=== PATIENT | male | born 1955 | race Caucasian/White ===

== ENCOUNTER → 2016-08-27 | Outpatient (CLI) | payer OTHER ==
[~2016-08-27] MED LIST: GADODIAMIDE PF 287 MG/ML 20 ML VIAL (for RAD MRI) IV ONE
--- NOTE | 2016-08-27 15:32 | RADRPT ---
EXAM DATE/TIME: 08/27/2016 13:59 [place] COMPARISON: No previous studies available for comparison. INDICATIONS : Malignant neoplasm. CONTRAST: 20 cc Omniscan (gadodiamide) IV MEDICAL HISTORY : Hypertension. Glioblastoma. SURGICAL HISTORY : Craniotomy. ENCOUNTER: Subsequent ACUITY: 4-6 months PAIN SCORE: 0/10 LOCATION: head TECHNIQUE: Whole brain MR perfusion was performed. Parametric maps generated included time to peak, mean transi t time, cerebral blood volume and cerebral blood flow. FINDINGS: There is a multilobular enhancing mass in the right posterior parietal lobe which measures almost 5.2 x 3.7 cm in size characteristic of underlying malignancy with encephalomalacia adjacent to it and so me degree of edema vasogenic in nature surrounding it without any mass effect or hemorrhage. There is reduction in blood flow and blood volume at this site. CONCLUSION: Multilobular enhancing mass adjacent to postoperative changes and encephalomalacia on the right side characteristic of underlying malignancy. Julio Cesar Mccann MD on August 27, 2016 at 15:13 Board Certified Radiologist. This report was verified electronically.
== END ==
LOC: HRAD 12:57
DX: C71.8 Malignant neoplasm of overlapping sites of brain (principal); E83.40 Disorders of magnesium metabolism, unspecified; Z79.899 Other long term (current) drug therapy
CPT/HCPCS: 70552; 76937; A9579